=== PATIENT | male | born 1945 | race Caucasian/White ===

== ENCOUNTER 2021-07-31 08:33 | Outpatient (CLI) | payer MEDICARE | END 2021-07-31 08:34 | disposition home or self-care (01) | LOC: CSHCT 08:33 | PROVIDERS: ATTEND Urology | DX: N20.0 Calculus of kidney (principal); N28.1 Cyst of kidney, acquired; K80.20 Calculus of gallbladder without cholecystitis without obstruction | CPT/HCPCS: 74178 ==